=== PATIENT | female | born 1990 | race Caucasian/White ===

== ENCOUNTER → 2024-01-08 14:27 | Outpatient (REF) | payer BC, SELFPAY | LOC: RAD 14:27 | PROVIDERS: ATTENDING PHYSICIAN Family Medicine | DX: M79.662 Pain in left lower leg (principal) | CPT/HCPCS: 73610 ==

== ENCOUNTER 2024-04-28 06:30 | Day surgery (SDC) | payer BC, SELFPAY | END 2024-04-28 15:00 | disposition home or self-care (01) | LOC: GI 06:30 | PROVIDERS: ATTENDING PHYSICIAN Internal Medicine Gastroenterology; FAMILY PHYSICIAN Family Medicine | DX: R11.2 Nausea with vomiting, unspecified (principal); K31.89 Other diseases of stomach and duodenum; K29.50 Unspecified chronic gastritis without bleeding; K31.A0 Gastric intestinal metaplasia, unspecified | CPT/HCPCS: 43239; 88305; 88342 ==

== ENCOUNTER → 2024-05-04 09:04 | Outpatient (REF) | payer BC, SELFPAY | LOC: HWRAD 09:04 | PROVIDERS: ATTENDING PHYSICIAN Family Medicine | DX: R10.811 Right upper quadrant abdominal tenderness (principal) | CPT/HCPCS: 76700 ==

== ENCOUNTER 2024-06-13 16:44 | Emergency (ER) | payer BC, SELFPAY ==
--- NOTE | 2024-06-13 17:33 | ED.GENMED ---
History of Present Illness
General
Chief Complaint: Abdominal Pain
Time Seen by Provider: 06/13/24 17:24
History of Present Illness
History of Present Illness:
Patient is a 34-year-old female with a history of an ovarian cyst who presents to the emergency department with sudden onset left pelvic pain. Symptoms came on abruptly around 1 PM. She felt very nauseated and got pale and sweaty. Since then she
has had colicky neck comes and goes. Denies any new vaginal discharge. Last menstrual period was 8 days ago. Denies fevers or chills. Denies any changes in bowel movements. Denies any urinary
Phy Exam
Physical Exam
Physical Exam:
GENERAL APPEARANCE: Mildly uncomfortable appearing
EYES lids/conjunctiva normal
EARS/NOSE/THROAT Mucous membranes moist, uvula midline without oral pharyngeal erythema, exudate or swelling
HEAD/NECK normocephalic atraumatic, neck is supple.
RESPIRATORY respiratory effort normal, speaks in full sentences, no accessory muscle use. Lungs clear to auscultation without rhonchi, wheezes, rales
CARDIAC Regular rate and rhythm, no edema.
ABDOMINAL mild tenderness to left lower quadrant/pelvic region.
MUSCLES/EXTREMITIES No abnormal range of motion, no swelling.
SKIN Warm, pink and dry. No rashes
NEUROLOGICAL Speech is clear and appropriate. Normal level of consciousness.
PSYCH Normal mood and affect. Judgement/competence is appropriate
Course
Orders/Labs/Results
Orders:
Orders
06/13/24 17:15
Test Result ONCE
06/13/24 17:31
0.9% Sodium Chloride 1000 ml [Nss] 1,000 ml IV BOLUS
Ketorolac [Toradol] 15 mg IV NOW STA
Ondansetron Injectable [Zofran] 4 mg IV NOW STA
06/13/24 17:57
Complete Blood Count/With Diff Urgent
Comprehensive Metabolic Panel Urgent
HCG, Serum Qualitative Screen Urgent
Lipase Urgent
Urinalysis Reflex To Culture Urgent
Specimen Description:
Date Specimen was Collected: 06/13/24
Time Specimen was Collected: 17:46
06/13/24 18:29
US Pelvis W Transvag Combined Urgent
Reason For Exam: pelvic pain, early
06/13/24 18:42
Type+Screen Urgent
HCG, Beta Quantitative [Beta HCG Quantitative] Urgent
Is this a screen?: No
06/13/24 19:52
ABO2 Urgent
BBK Wristband Number:
Associate notified that ABO2 has been ordered: [id number]
Date: 06/13/24
Time: 18:46
Turn Sewer ID: [id number]
06/13/24 21:09
Acetaminophen [Tylenol] 1,000 mg .ROUTE .STK-MED ONE
06/13/24 21:11
Acetaminophen [Tylenol] 1,000 mg PO NOW STA
Abnormal Lab Results
06/13/24
17:57
WBC 13.5 H 10^3/uL
(4.8-10.8)
Abs Immat Gran (auto) 0.1 H 10^3/uL
(0-0.05)
Absolute Neuts (auto) 9.2 H 10^3/uL
(1.4-6.5)
Absolute Monos (auto) 0.9 H 10^3/uL
(0.1-0.6)
ALT 41 H U/L
(0-35)
06/13/24 17:57
06/13/24 17:57
Vital Signs
Initial and Last Documented VS:
Initial Vital Signs
Temp Pulse Resp Pulse Ox
98.4 F 77 18 100
06/13/24 16:48 06/13/24 16:48 06/13/24 16:48 06/13/24 16:48
Last Documented Vital Signs
Temp Pulse Resp BP Pulse Ox
98.4 F 81 17 102/40 99
06/13/24 16:48 06/13/24 22:16 06/13/24 22:16 06/13/24 19:02 06/13/24 18:45
*Critical Care Note
Total Time (30-74mins, 75-104mins- exclusive of procedures): Not Applicable
ED Attending Note
ED Attending Note
ED Attending Note:
patient with pelvic pain found to be
ultrasound with normal ovaries, no torsion, no cyst
no gestational sac seen
can't rule out early ectopic
consulted OB Dr. Bowles -- her office will reach out to patient tomorrow to continue serial bHCGs and rule out ectopic
-
Portions of this chart may have been created with voice recognition software.� Occasional wrong word or��sound alike� substitutions may have occurred due to the inherent limitations of voice recognition software.
Discharge Plan
Departure
Patient Disposition: Home (Routine Discharge)
Date of Disposition: 06/13/24
Time of Disposition: 21:14
Patient with high blood pressure during this ER visit?: No
Discharge Problem:
, location unknown, Pelvic pain
Instructions: symptoms, Stomach Pain in Early
Referrals:
Oma Bowles MD [Active] -
Elizabeth Craig MD [Family Provider] -
Activity Restrictions/Additional Instructions:
Please follow up with Dr. Bowles in the next few days
it is possible you have an early normal , however we cannot rule out ectopic at this time
you need continued outpatient testing and follow up
return to ER with new or worsening symptoms including vaginal bleeding, passing out, fevers
tylenol for pain
Interventions
Interventions:
*Risk Screen - Suicide Last Done: 06/13/24 16:51
*General Assessment Last Done: 06/13/24 16:51
*Neglect/Abuse Screening Last Done: 06/13/24 16:51
*Nursing Disposition Last Done: 06/13/24 22:16
KM-Hjlbqv-Xazlmrptdf Assessment Last Done: 06/13/24 19:01
Discharge Date and Time
Discharge Date/Time: 06/13/24 21:30
Print Language: TANZANIAN
[2024-06-13] MEDS: NSS 1000 IV (17:48)
[2024-06-13] MEDS: TORADOL 15 MG IV (17:48)
[2024-06-13] MEDS: ZOFRAN 4 MG IV (17:48)
[2024-06-13 17:58] VITALS: BP 125/64
[2024-06-13 18:00] VITALS: BP 120/71
[2024-06-13 18:12] LABS: % Basophils 0.5 % (0-2); % Eosinophils 0.9 % (0-6); % Immature Granulocytes 0.4 % (0-0.5); % Monocytes 6.9 % (1.7-9.3); % Neutrophils 68.3 % (42.2-75.2); Absolute Basophils 0.1 10^3/uL (0-0.2); Absolute Eosinophils 0.1 10^3/uL (0-0.7); Absolute Immature Granulocytes 0.1 10^3/uL (0-0.05); Absolute Lymphocytes 3.1 10^3/uL (1.2-3.4); Absolute Monocytes 0.9 10^3/uL (0.1-0.6); Absolute Neutrophils 9.2 10^3/uL (1.4-6.5); Hematocrit 45.6 % (37.0-47.0); Hemoglobin 15.7 g/dL (12.0-16.0); Mean Corp Hgb Conc. 34.4 g/dL (33.0-37.0); Mean Corpuscular Hgb 30.5 pg (27.0-31.0); Mean Corpuscular Volume 88.7 fL (81.0-99.0); Mean Platelet Volume 9.5 fL (7.4-10.4); Nucleated Red Blood Cells % 0 %; Platelet Count 289 10^3/uL (130-400); Red Blood Cell Count 5.14 10^6/uL (4.20-5.40); Red Cell Dist. Width 12.5 % (11.5-14.5); Urine Albumin Negative (Neg - Trace); Urine Bilirubin Negative (Negative); Urine Character Clear (Clear); Urine Color Yellow; Urine Glucose Negative (Negative); Urine Ketone Negative (Negative); Urine Leukocyte Negative (Negative); Urine Nitrite Negative (Negative); Urine Occult Blood Negative (Negative); Urine Urobilinogen Negative (Neg - 1+); White Blood Cell Count 13.5 10^3/uL (4.8-10.8)
[2024-06-13 18:22] LABS: HCG, Serum Qualitative Screen Positive
[2024-06-13 18:28] LABS: ALT (SGPT) 41 U/L (0-35); AST (SGOT) 24 U/L (14-36); Albumin 4.2 g/dl (3.5-5.0); Alkaline Phosphatase 73 U/L (38-126); Blood Urea Nitrogen 7 mg/dl (7-17); Calcium 9.7 mg/dl (8.4-10.2); Carbon Dioxide 24 mmol/L (22-30); Chloride 106 mmol/L (98-107); Glucose 96 mg/dl (70-99); Lipase 103 U/L (23-300); Potassium 4.2 mmol/L (3.5-5.1); Sodium 138 mmol/L (135-145); Total Bilirubin 0.5 mg/dl (0.2-1.3); Total Protein 7.1 g/dl (6.3-8.2); eGFR > 60.00
[2024-06-13 19:00] VITALS: BMI 42.9
[2024-06-13 19:02] VITALS: BP 102/40
[2024-06-13 19:22] LABS: Beta HCG Quantitative 533.94 mIU/ml
[2024-06-13] MEDS: TYLENOL 1000 MG PO (21:11)
== END 2024-06-13 21:30 | disposition home or self-care (01) ==
LOC: EMR 16:44
PROVIDERS: Emergency Medicine; EMERGENCY PHYSICIAN Emergency Medicine; FAMILY PHYSICIAN Family Medicine
DX: O36.80X0 Pregnancy with inconclusive fetal viability, not applicable or unspecified (principal); O26.891 Other specified pregnancy related conditions, first trimester; R10.2 Pelvic and perineal pain; Z3A.00 Weeks of gestation of pregnancy not specified
CPT/HCPCS: 96374; 96375; 96361; 99284; 76830; 76856; 80053; 81003; 83690; 84702; 84703; 85025; 86850; 86900; 86901

== ENCOUNTER → 2024-06-15 08:40 | Outpatient (REF) | payer BC, SELFPAY ==
[2024-06-15 10:29] LABS: Beta HCG Quantitative 285.76 mIU/ml
== END ==
LOC: REG 08:40
PROVIDERS: ATTENDING PHYSICIAN Obstetrics & Gynecology Gynecology
DX: O20.0 Threatened abortion (principal)
CPT/HCPCS: 36415; 84702

== ENCOUNTER → 2024-06-18 13:31 | Outpatient (REF) | payer BC, SELFPAY ==
[2024-06-18 15:34] LABS: Beta HCG Quantitative 132.33 mIU/ml
== END ==
LOC: REG 13:31
PROVIDERS: ATTENDING PHYSICIAN Obstetrics & Gynecology Gynecology; FAMILY PHYSICIAN Family Medicine
DX: O03.9 Complete or unspecified spontaneous abortion without complication (principal)
CPT/HCPCS: 36415; 84702

== ENCOUNTER → 2024-06-29 13:56 | Outpatient (REF) | payer OTHER, SELFPAY ==
[2024-06-29 15:02] LABS: Beta HCG Quantitative < 2.39 mIU/ml
== END ==
LOC: REG 13:56
PROVIDERS: ATTENDING PHYSICIAN Obstetrics & Gynecology Gynecology; FAMILY PHYSICIAN Family Medicine
DX: O03.9 Complete or unspecified spontaneous abortion without complication (principal)
CPT/HCPCS: 36415; 84702

== ENCOUNTER 2024-09-06 18:58 | Emergency (ER) | payer OTHER, SELFPAY ==
[2024-09-06 19:04] VITALS: BP 135/84
--- NOTE | 2024-09-06 19:35 | ED.GENMED ---
History of Present Illness
General
Chief Complaint: Anxiety
Source: patient
Exam Limitations: none
Time Seen by Provider: 09/06/24 19:34
History of Present Illness
History of Present Illness:
34yoF with a history of anxiety, depression, and vasovagal syncope presenting for evaluation of panic attacks. Patient is currently maintained on Wellbutrin and as needed Ativan. She typically takes a total of 2mg Ativan daily. Her anxiety has
been well-controlled up until about a week ago. Patient reports frequent panic attacks over the past few days. During the episodes, her heart is racing and she feels like she has to pass out. She did have a syncopal episode 3 days ago. She
started Depo-Provera shots about a month ago. Her PCP and psychiatrist believe this may be the culprit. She currently feels better and last took Ativan less than an hour ago. No suicidal ideations.
Phy Exam
General Physical Exam
General Presentation: well appearing and no apparent distress
General Skin: warm and dry
General Habitus: normal
General Mental: alert
ENT Exam
ENT Exam: normocephalic
Cardiovascular Exam
Cardiovascular Exam: regular rate/rhythm and no murmur
Pulmonary Exam
Pulmonary Exam: lungs clear, no respiratory distress, no rales, no crackles, no rhonchi and no wheezing
Neurological Exam
Neurological Exam: alert
Angela Coma Scale
Eye Opening: Spontaneous
Verbal Response: Oriented
Motor Response: Obeys Commands
GCS Total Score: 15
Skin Exam
Skin Exam: normal color and warm/dry
Psychiatric Exam
Psychiatric Exam: anxious and other (No SI. No signs of psychosis.)
Course
Orders/Labs/Results
Orders:
Orders
09/06/24 19:09
Electrocardiogram (*1) Urgent
Reason for Study: Syncope
EKG- Treatment ONCE
09/06/24 19:49
Cardiac Monitoring- Treatment ONCE
Test Result ONCE
09/06/24 20:02
Complete Blood Count/With Diff Urgent
Comprehensive Metabolic Panel Urgent
D-Dimer Urgent
HCG, Serum Qualitative Screen Urgent
Magnesium Urgent
TSH Reflex To Free T4 Urgent
Troponin I Urgent
09/06/24 21:40
Acetaminophen [Tylenol] 1,000 mg PO NOW STA
09/06/24 22:11
0.9% Sodium Chloride 1000 ml [Nss] 1,000 ml IV BOLUS
Abnormal Lab Results
09/06/24
20:02
WBC 13.0 H 10^3/uL
(4.8-10.8)
Absolute Neuts (auto) 7.3 H 10^3/uL
(1.4-6.5)
Absolute Lymphs (auto) 4.2 H 10^3/uL
(1.2-3.4)
Absolute Monos (auto) 1.2 H 10^3/uL
(0.1-0.6)
Chloride 110 H mmol/L
(98-107)
ALT 38 H U/L
(0-35)
09/06/24 20:02
09/06/24 20:02
Vital Signs
Initial and Last Documented VS:
Initial Vital Signs
Temp Pulse Resp BP Pulse Ox
98.5 F 108 18 135/84 98
09/06/24 19:04 09/06/24 19:04 09/06/24 19:04 09/06/24 19:04 09/06/24 19:04
Last Documented Vital Signs
Temp Pulse Resp BP Pulse Ox
98.5 F 98 18 114/74 97
09/06/24 19:04 09/06/24 22:30 09/06/24 22:30 09/06/24 22:30 09/06/24 22:30
MDM/Problems Addressed
Differential Diagnosis Includes:
34yoF here with uncontrolled anxiety over the past few days. C/o panic attacks in which her heart will race and she feels like she needs to pass out. S/p syncopal episode 3 days ago. She does report a history of vasovagal syncope. HR 108 on arrival.
Remainder of vitals stable. She is non-toxic appearing and exam reassuring. Differential diagnosis includes but is not limited to: anxiety, arrhythmia, thyroid dysfunction, dehydration
Initial ED plan: EKG obtained in triage which shows NSR without ischemic changes or ectopy. Will check cardiac labs, D-dimer, TSH, and HCG.
*Pulse Oximetry
Patient hypoxic: no (97%)
*EKG
Interpreted by ED Provider?: Yes
EKG Intrepretation Date: 09/06/24
Heart Rate: 97
Rate: normal
Rhythm: sinus
Howe: normal axis
Interval: normal interval
QRS Pattern: normal QRS
Ischemia: no ischemia
*Critical Care Note
Total Time (30-74mins, 75-104mins- exclusive of procedures): Not Applicable
Update Note
Update Note:
Labs show a WBC of 13 which is nonspecific and appears stable from last lab work in May. Remainder of labs unremarkable including normal electrolytes, TSH, and troponin. D-dimer normal making PE very unlikely. She has no suicidal ideations and
there is no indication for inpatient psych admission. She has a psychiatrist/therapist that she follows with regularly. Patient was advised to f/u with her PCP and psychiatrist to discuss medication adjustments. She was discharged in stable
condition.
ED Attending Note
-
Portions of this chart may have been created with voice recognition software.� Occasional wrong word or��sound alike� substitutions may have occurred due to the inherent limitations of voice recognition software.
Discharge Plan
Departure
Patient Disposition: Home (Routine Discharge)
Date of Disposition: 09/06/24
Time of Disposition: 22:20
Patient with high blood pressure during this ER visit?: No
Discharge Problem:
Anxiety, Syncope
Instructions: Anxiety, Adult (DC)
Referrals:
Mignon Baugh, [Family Provider, Internal Medicine]
Activity Restrictions/Additional Instructions:
Please call your family doctor and psychiatrist tomorrow for follow-up. Return to the ER with any new or worsening symptoms.
Interventions
Interventions:
*Risk Screen - Suicide Last Done: 09/06/24 19:04
*General Assessment Last Done: 09/06/24 19:04
*Neglect/Abuse Screening Last Done: 09/06/24 19:25
*ED- Fall Risk Assessment Last Done: 09/06/24 19:25
*ED COVID-19 Vaccine History Last Done: 09/06/24 19:25
*Nursing Disposition Last Done: 09/06/24 22:48
ED-Psychological Assessment Last Done: 09/06/24 19:25
Discharge Date and Time
Discharge Date/Time: 09/06/24 22:49
Print Language: CAMBODIAN
[2024-09-06 20:01] VITALS: BP 120/63
[2024-09-06 20:09] LABS: % Basophils 0.5 % (0-2); % Eosinophils 1.8 % (0-6); % Immature Granulocytes 0.2 % (0-0.5); % Lymphocytes 32.4 % (20.5-51.1); % Monocytes 8.9 % (1.7-9.3); % Neutrophils 56.2 % (42.2-75.2); Absolute Basophils 0.1 10^3/uL (0-0.2); Absolute Eosinophils 0.2 10^3/uL (0-0.7); Absolute Lymphocytes 4.2 10^3/uL (1.2-3.4); Absolute Monocytes 1.2 10^3/uL (0.1-0.6); Absolute Neutrophils 7.3 10^3/uL (1.4-6.5); Hematocrit 46.2 % (37.0-47.0); Hemoglobin 15.6 g/dL (12.0-16.0); Mean Corp Hgb Conc. 33.8 g/dL (33.0-37.0); Mean Corpuscular Hgb 29.5 pg (27.0-31.0); Mean Corpuscular Volume 87.5 fL (81.0-99.0); Mean Platelet Volume 9.5 fL (7.4-10.4); Nucleated Red Blood Cells % 0 %; Platelet Count 283 10^3/uL (130-400); Red Blood Cell Count 5.28 10^6/uL (4.20-5.40); Red Cell Dist. Width 12.2 % (11.5-14.5)
[2024-09-06 20:20] LABS: D-Dimer 0.37 ug/mlFEU (0.00-0.50)
[2024-09-06 20:25] LABS: HCG, Serum Qualitative Screen Negative
[2024-09-06 20:31] LABS: ALT (SGPT) 38 U/L (0-35); AST (SGOT) 20 U/L (14-36); Albumin 4.3 g/dl (3.5-5.0); Alkaline Phosphatase 75 U/L (38-126); Blood Urea Nitrogen 11 mg/dl (7-17); Calcium 9.3 mg/dl (8.4-10.2); Carbon Dioxide 22 mmol/L (22-30); Chloride 110 mmol/L (98-107); Glucose 82 mg/dl (70-99); Magnesium 2.1 mg/dl (1.6-2.3); Sodium 140 mmol/L (135-145); Total Bilirubin 0.4 mg/dl (0.2-1.3); Total Protein 7.1 g/dl (6.3-8.2); eGFR > 60.00
[2024-09-06 20:33] LABS: Troponin I < 0.012 ng/ml
[2024-09-06 20:58] LABS: TSH Reflex To Free T4 3.11 uIU/ml (0.47-4.68)
[2024-09-06 21:00] VITALS: BP 112/75
[2024-09-06] MEDS: TYLENOL 1000 MG PO (21:47)
[2024-09-06 22:01] VITALS: BP 97/82
[2024-09-06] MEDS: NSS 1000 IV (22:13)
[2024-09-06 22:30] VITALS: BP 114/74
== END 2024-09-06 22:49 | disposition home or self-care (01) ==
LOC: EMR 18:58
PROVIDERS: Physician Assistant; EMERGENCY PHYSICIAN Emergency Medicine; FAMILY PHYSICIAN Internal Medicine
DX: F41.9 Anxiety disorder, unspecified (principal); R55 Syncope and collapse; F32.A Depression, unspecified; Z79.899 Other long term (current) drug therapy
CPT/HCPCS: 99284; 96360; 80053; 83735; 84443; 84484; 84703; 85025; 85379; 93005